=== PATIENT | female | born 1995 | race Caucasian/White ===

== ENCOUNTER 2019-05-07 18:03 | Emergency (ER) | payer MEDICAID ==
[~2019-05-07] VITALS: Ht 160 cm; Wt 88.9 kg
[2019-05-07 18:11] VITALS: BP 111/66
--- NOTE | 2019-05-07 20:09 | NUR ---
PT AMBULATED TO BED 9
--- NOTE | 2019-05-07 20:14 | NUR ---
DR FLANAGAN AT BEDSIDE
--- NOTE | 2019-05-07 20:30 | NUR ---
23 Y/O FEMALE PRESENTS TO ED, REFERRED BY CLINIC. C/O OF NO MOVEMENT X 2 DAYS. PT 18 WEEKS . A0. PT DENIES ANY VAGINAL BLEEDING/DISCHARGE. PT DENIES ANY PAIN OR CRAMPING. PT VSS. ERMD AWARE. WILL CONTINUE TO MONITOR.
--- NOTE | 2019-05-07 20:38 | NUR ---
ULTRASOUND AT BEDSIDE
[2019-05-07 21:34] VITALS: BP 119/66
--- NOTE | 2019-05-07 21:34 | NUR ---
Patient discharged with v/s stable. Written and verbal after care instructions given and explained REGARDING 2ND TRIMESTER . Patient verbalized understanding. Ambulatory with steady gait. All questions addressed prior to discharge. Advised to follow up with DR ROBERTS IN 1 DAY OR RETURN IF SYMPTOMS WORSEN.
== END 2019-05-07 21:34 | disposition home or self-care (01) ==
LOC: MED 18:03
DX: Z34.92 Encounter for supervision of normal pregnancy, unspecified, second trimester (principal); Z3A.18 18 weeks gestation of pregnancy; Z88.0 Allergy status to penicillin
CPT/HCPCS: 76815; 81002; 81025; 99284; Q0092